=== PATIENT | male | born 1955 | race African-American/Black ===

== ENCOUNTER 2019-11-30 01:57 | Emergency (ER) | payer MEDICARE ==
[~2019-11-30] VITALS: Ht 170.2 cm; Wt 69.0 kg
[2019-11-30] MEDS ORDERED: FLO0.4C PO (02:54)
[2019-11-30] MEDS ORDERED: BIMA2.5D OP (02:54)
[2019-11-30] MEDS ORDERED: LURA80TA3 PO (02:54)
[2019-11-30] MEDS ORDERED: FLUT1DIS INH (02:54)
[2019-11-30] MEDS ORDERED: ALBU8HFA PO (02:54)
[2019-11-30] MEDS ORDERED: METO-395 PO (02:54)
[2019-11-30] MEDS ORDERED: AMLO10TA48 PO (02:54)
[2019-11-30] MEDS ORDERED: DULO60CA45 PO (02:54)
[2019-11-30 03:05] LABS: BASOPHILS % (AUTO) 0.9 % (0-1); EOSINOPHILS # (AUTO) 0.2 X10'3 (0-0.9); EOSINOPHILS % (AUTO) 4.5 % (0-6); HEMATOCRIT 41.3 % (42.0-52.0); HEMOGLOBIN 13.6 g/dl (14.0-17.9); LYMPHOCYTES # (AUTO) 1.3 X10'3 (1.1-4.8); LYMPHOCYTES % (AUTO) 24.1 % (21-51); MEAN CORPUSCULAR HEMOGLOBIN 30.3 PG (27.0-31.0); MEAN CORPUSCULAR VOLUME 91.9 FL (78-98); MEAN PLATELET VOLUME 7.9 FL (7.4-10.4); MONOCYTES # (AUTO) 0.7 X10'3 (0-0.9); MONOCYTES % (AUTO) 12.6 % (2-12); NEUTROPHILS # (AUTO) 3.1 X10'3 (1.8-7.7); NEUTROPHILS % (AUTO) 57.9 % (42-75); PLATELET COUNT 304 X10'3 (140-440); RED BLOOD COUNT 4.49 X10'6 (4.70-6.10); RED CELL DISTRIBUTION WIDTH 14.4 % (11.5-14.5); WHITE BLOOD COUNT 5.3 X10'3 (4.5-11.0)
[2019-11-30 03:05] LABS: CLARITY,URINE CLEAR (Clear); COLOR,URINE YELLOW (Yellow); GLUCOSE, URINE NEGATIVE (Neg); KETONES,URINE NEGATIVE (Neg); LEUKOCYTE ESTERASE ,URINE NEGATIVE (Neg); NITRITES, URINE NEGATIVE (Neg); OCCULT BLOOD,URINE TRACE-INTACT (Neg); PROTEIN,URINE NEGATIVE (Neg); UROBILINOGEN,URINE 0.2 E.U/dL (0.2-1.0)
[2019-11-30 03:09] LABS: URINE AMPHETAMINE SCREEN POSITIVE (Neg); URINE BARBITUATE SCREEN NEGATIVE (Neg); URINE BENZODIAZEPINES SCREEN NEGATIVE (Neg); URINE CANNABINOID SCREEN NEGATIVE (Neg); URINE COCAINE SCREEN NEGATIVE (Neg); URINE METHADONE SCREEN NEGATIVE (Neg); URINE OPIATE SCREEN POSITIVE (Neg); URINE PHENCYCLIDINE SCREEN NEGATIVE (Neg)
[2019-11-30 03:09] LABS: ALANINE AMINOTRANSFERASE 41 U/L (12-78); ALKALINE PHOSPHATASE 107 IU/L (46-116); ANION GAP 7 (8-16); ASPARTATE AMINO TRANSFERASE 47 U/L (10-37); BILIRUBIN,TOTAL 1.4 MG/DL (0.1-1.0); BLOOD UREA NITROGEN 10 MG/DL (7-18); BUN/CREATININE RATIO 8.9 (5.4-32.0); CHLORIDE 100 MMOL/L (99-107); CREATININE 1.12 MG/DL (0.60-1.10); GLUCOSE 80 MG/DL (70-104); POTASSIUM 3.9 MMOL/L (3.5-5.1); SODIUM 137 MMOL/L (135-145); TOTAL PROTEIN 8.1 G/DL (6.4-8.2); eGFR 80 ML/MIN
[2019-11-30 03:12] LABS: UA COLLECTION TYPE CLN CATCH MIDSTREAM
[2019-11-30 03:13] LABS: BACTERIA,URINE NONE SEEN /HPF (Neg); RBC,URINE 0-2 /HPF (0-2); SQUAMOUS EPITHELIAL CELL,UR FEW /LPF (FEW); WBC,URINE NONE SEEN /HPF (0-4)
--- NOTE | 2019-11-30 03:14 | NUR ---
Pt directed to the bathroom and returned to bed. He stated he was thirsty and hungry; water, juice, and a sandwich were provided. He is currently sitting up on the side of bed consuming his food.
[2019-11-30 03:18] LABS: ETHANOL < 0.010 GM/DL (0.0-0.010)
[2019-11-30] MEDS ORDERED: albuterol 2.5 MG/3 ML nebule NEB PRN (03:55)
[2019-11-30] MEDS ORDERED: diphenhydrAMINE 25mg capsule PO ONE (05:10)
--- NOTE | 2019-11-30 05:15 | NUR ---
Pt ambulated to the bathroom for voiding and returned to bed. He requested a medical to help with some light anxiety. Pt is resting in bed at this time.
--- NOTE | 2019-11-30 06:16 | NUR ---
patient received on bed awake.We will continue to monitor.
[2019-11-30] MEDS ORDERED: metoprolol succinate 25mg (24-HOUR) SR. Tablet PO SCH (08:00)
[2019-11-30] MEDS ORDERED: amLODIPine 5mg tablet PO SCH (08:00)
[2019-11-30] MEDS ORDERED: tamsulosin 0.4mg capsule PO SCH (08:00)
[2019-11-30] MEDS ORDERED: duloxetine 30mg CAPSULE.DR PO SCH (08:00)
--- NOTE | 2019-11-30 08:16 | NUR ---
[facility] mental health worker at bedside.
[2019-11-30] MEDS: albuterol 2.5 MG/3 ML nebule NEB SCH ×3 (08:42→19:57)
[2019-11-30] MEDS: budesonide 0.5mg/2ml UD nebule IH SCH ×2 (08:42→19:57)
--- NOTE | 2019-11-30 11:31 | NUR ---
patient on bed awake.
--- NOTE | 2019-11-30 11:52 | NUR ---
pt brought over from main er report recived and placed in bed pt asking for food
--- NOTE | 2019-11-30 12:48 | NUR ---
relieving RN for break, pt is sleeping, resp even and unlabored
--- NOTE | 2019-11-30 13:39 | NUR ---
pt ate lunch and now is in bed resting no complates or distress noted at this time
--- NOTE | 2019-11-30 15:29 | NUR ---
resting in bed snack given laying down with his eye closed
--- NOTE | 2019-11-30 16:42 | NUR ---
in bed appears to be sleeping rise and fall of chest noted
[2019-11-30 17:24] VITALS: BP 126/80
--- NOTE | 2019-11-30 18:45 | NUR ---
Patient is eating dinner. He is well oriented, cooperative, requesting additional snacks. Patient will not interview at this time.
--- NOTE | 2019-11-30 19:35 | NUR ---
Patient is well oriented, he demands more snacks, wants to know where his protein drink is? The patient was advised that this typewriter operator automatic could find no order for a protein drink but it would be looked at soon. The patient was given additional juices, etc.
--- NOTE | 2019-11-30 20:35 | NUR ---
Patient became very angry, he screams at tech as she attempts to give him applesauce. The patient then yells at this designer writer that he is from [place] and we are all racists here and will be judged by God! The patient is reminded that we have given him a meal, apple sauce, a turkey sandwich, cameron crackers, multiple other food items. Calming measures are being used.
[2019-11-30] MEDS ORDERED: latanoprost 0.005% 2.5ml ophthalmic drops EACHEYE SCH (21:00)
--- NOTE | 2019-11-30 21:09 | NUR ---
relieving RN for break, pt is going to be transported to [facility], Roula Ramirez RN aware pt has been dc'd and is ready to go up stairs
[2019-12-11] MEDS ORDERED: METO-395 PO (12:38)
[2019-12-11] MEDS ORDERED: GABA300C PO (12:38)
[2019-12-11] MEDS ORDERED: LURA20TA PO (12:38)
[2019-12-11] MEDS ORDERED: DULO30CA52 PO (12:38)
[2019-12-11] MEDS ORDERED: ALBU8HFA PO (12:38)
[2019-12-11] MEDS ORDERED: LURA80TA3 PO (12:38)
[2019-12-11] MEDS ORDERED: DULO60CA65 PO (12:38)
[2019-12-11] MEDS ORDERED: FLUT1DIS INH (12:38)
[2019-12-11] MEDS ORDERED: TRAZ-251 PO (12:38)
[2019-12-11] MEDS ORDERED: FLO0.4C PO (12:38)
== END 2019-11-30 21:08 ==
LOC: ER 01:58
DX: R45.851 Suicidal ideations (principal); F31.9 Bipolar disorder, unspecified; F17.200 Nicotine dependence, unspecified, uncomplicated; F11.90 Opioid use, unspecified, uncomplicated; Z59.0 Homelessness; Z79.899 Other long term (current) drug therapy
CPT/HCPCS: 94640; 99285; Q0163; 36415; 80053; 80305; 80320; 81001; 84443; 85025; 94760; J7626

== ENCOUNTER 2019-12-11 21:04 | Emergency (ER) | payer MEDICARE, MEDICAID ==
[~2019-12-11] VITALS: Ht 172.7 cm; Wt 72.7 kg
[~2019-12-11 21:04] MED LIST: ALBU8HFA PO; AMLO10TA48 PO; BIMA2.5D OP; DULO30CA52 PO; DULO60CA45 PO; DULO60CA65 PO; FLO0.4C PO; FLUT1DIS INH; GABA300C PO; LURA20TA PO; LURA80TA3 PO; METO-395 PO; TRAZ-251 PO
--- NOTE | 2019-12-11 21:23 | NUR ---
CHEST X RAY COMPLETE
--- NOTE | 2019-12-11 21:45 | NUR ---
updated plan of care with patient . REPORTED TO MD THAT PATIENT STILL NEEDS TO BE SEEN
[2019-12-11 22:00] LABS: BASOPHILS # (AUTO) 0.1 X10'3 (0-0.2); BASOPHILS % (AUTO) 0.8 % (0-1); EOSINOPHILS # (AUTO) 0.1 X10'3 (0-0.9); EOSINOPHILS % (AUTO) 1.2 % (0-6); HEMOGLOBIN 12.8 g/dl (14.0-17.9); LYMPHOCYTES # (AUTO) 1.5 X10'3 (1.1-4.8); MEAN CORPUSCULAR HEMOGLOBIN 30.9 PG (27.0-31.0); MEAN CORPUSCULAR HGB CONC 33.8 g/dL (33.0-36.5); MEAN CORPUSCULAR VOLUME 91.5 FL (78-98); MEAN PLATELET VOLUME 8.1 FL (7.4-10.4); MONOCYTES # (AUTO) 0.8 X10'3 (0-0.9); MONOCYTES % (AUTO) 11.8 % (2-12); NEUTROPHILS # (AUTO) 4.4 X10'3 (1.8-7.7); NEUTROPHILS % (AUTO) 64.2 % (42-75); PLATELET COUNT 238 X10'3 (140-440); RED BLOOD COUNT 4.15 X10'6 (4.70-6.10); RED CELL DISTRIBUTION WIDTH 14.9 % (11.5-14.5); WHITE BLOOD COUNT 6.8 X10'3 (4.5-11.0)
[2019-12-11 22:15] LABS: ALANINE AMINOTRANSFERASE 21 U/L (12-78); ALBUMIN 3.6 G/DL (3.4-5.0); ALBUMIN/GLOBULIN RATIO 0.9 (1.1-1.5); ALKALINE PHOSPHATASE 84 IU/L (46-116); ANION GAP 12 (8-16); ASPARTATE AMINO TRANSFERASE 25 U/L (10-37); BILIRUBIN,TOTAL 0.9 MG/DL (0.1-1.0); BLOOD UREA NITROGEN 15 MG/DL (7-18); BUN/CREATININE RATIO 14.2 (5.4-32.0); CHLORIDE 103 MMOL/L (99-107); CREATININE 1.06 MG/DL (0.60-1.10); GLUCOSE 88 MG/DL (70-104); POTASSIUM 4.1 MMOL/L (3.5-5.1); SODIUM 140 MMOL/L (135-145); TOTAL CARBON DIOXIDE 25.5 MMOL/L (24-32); TOTAL PROTEIN 7.4 G/DL (6.4-8.2); eGFR 85 ML/MIN
--- NOTE | 2019-12-11 22:15 | NUR ---
CHECKED ON PATIENT . PAULA STABLE AWAITING MD MD LAUREANO NOTIFIED PATIENT IS ASKING TO SEE HIM
--- NOTE | 2019-12-11 22:50 | NUR ---
NOTIFIED DR PALMA THAT PATIENT STILL NEEDS TO BE SEEN AND THAT PATIENT DOES NOT HAVE A LINE STARTED AFTER X3 ATTEMPTS AND PT IS ASKING IF HE NEEDS IV . MD PALMA AWARE SALINE LOCK WAS NOT STARTED
[2019-12-12 02:14] VITALS: BP 163/96
== END 2019-12-12 01:55 | disposition home or self-care (01) ==
LOC: ER 21:05
DX: R07.9 Chest pain, unspecified (principal); E78.00 Pure hypercholesterolemia, unspecified; I10 Essential (primary) hypertension; J44.9 Chronic obstructive pulmonary disease, unspecified; F31.9 Bipolar disorder, unspecified; F17.200 Nicotine dependence, unspecified, uncomplicated; Z72.89 Other problems related to lifestyle; Z59.0 Homelessness; Z79.899 Other long term (current) drug therapy
CPT/HCPCS: 36415; 71045; 80053; 84484; 85025; 93005; 99285